=== PATIENT | female | born 2000 | race African-American/Black ===

== ENCOUNTER 2020-12-15 10:10 | Inpatient (IN) ==
[2020-12-15] MEDS ORDERED: ONDANSETRON 4 MG/2 ML VIAL IV PRN ×2 (11:10→15:26)
[2020-12-15] MEDS ORDERED: OXYTOCIN/LR 20 UNIT/1,000 ML BAG IV ONE ×3 (11:13→15:26)
[2020-12-15] MEDS ORDERED: AMPICILLIN INJ 2,000 MG in SODIUM CHLORIDE 0.9% 100 ML IV ONE (11:13)
[2020-12-15] MEDS: LACTATED RINGERS 1,000 ML IV PRN ×2 (11:25→14:28)
[2020-12-15] MEDS ORDERED: ePHEDrine 50 MG/ML VIAL IV PRN (11:31)
[2020-12-15] MEDS ORDERED: CITRIC ACID/SODIUM CITRATE 30 ML UDCUP PO ONE (11:34)
[2020-12-15] MEDS ORDERED: FAMOTIDINE 20 MG/2 ML VIAL IV ONE (11:34)
[2020-12-15] MEDS ORDERED: TRANEXAMIC ACID 1,000 MG/10 ML VIAL ONE (11:37)
[2020-12-15] MEDS ORDERED: OXYTOCIN 10 UNIT/ML VIAL ONE (11:37)
[2020-12-15] MEDS ORDERED: miSOPROStoL 200 MCG TABLET ONE (11:37)
[2020-12-15] MEDS ORDERED: CARBOPROST TROMETHAMINE 250 MCG/ML AMP IM ONE (11:38)
[2020-12-15] MEDS ORDERED: METHYLERGONOVINE 0.2 MG/1 ML AMP ONE (11:38)
[2020-12-15] MEDS ORDERED: BUTORPHANOL 1 MG/ML VIAL IV ONE (11:50)
[2020-12-15] MEDS ORDERED: BUTORPHANOL 1 MG/ML VIAL ONE (11:51)
[2020-12-15 11:53] LABS: Blood, Urine Large mg/dL (Negative); Glucose,Urine (UA) Negative (Negative); Ketones,Urine 80 mg/dL (Negative); Mucus,Urine Many /LPF (Occasional); Nitrite,Urine Negative (Negative); Protein,Urine 100 MG/DL; RBC,Urine 3 /HPF (0-4); Squamous Epithelial Cell,Urine Many /HPF (0-10); Urine Appearance CLOUDY (Clear); Urine Color Amber (Yellow); Urine Specific Gravity 1.023 (1.001-1.035)
[2020-12-15 11:54] LABS: Bilirubin,Urine Small mg/dL (Negative)
[2020-12-15 12:00] LABS: Basophils % 0.3 % (0.0-0.8); Eosinophils % 0.1 % (0.00-10.9); Hematocrit 26.4 VOL% (35.7-47.0); Hemoglobin 7.5 GM/DL (12.0-16.0); Immature Granulocytes % 1.1 %; Immature Granulocytes Absolute 0.13 #; Lymphocytes # 1.4 10*3/uL (1.4-4.0); Lymphocytes % 12.1 % (21.3-54.2); Mean Corpuscular HGB Conc 28.4 GM/DL (32-36); Mean Corpuscular Volume 69.8 FL (87-102); Mean Platelet Volume 8.8 FL (9.6-12.0); Monocytes % 4.9 % (1.7-12.7); NRBC # 0.02 10*3/uL; Neutrophils % 81.5 % (38.7-73.9); Platelet Count 202 T/CUMM (130-400); Red Blood Count 3.78 MC/CUMM (3.8-5.5); White Blood Count 11.5 T/CUMM (4-12)
[2020-12-15] MEDS ORDERED: fentaNYL 2 MCG/ROPIV 0.2% EPID 100 ML EPIDURAL SCH (12:00)
[2020-12-15] MEDS ORDERED: miSOPROStoL 200 MCG TABLET RECTAL ONE (15:10)
[2020-12-15 15:23] LABS: Cord Arterial Blood HCO3 22.2 MMOL/L
[2020-12-15 15:24] LABS: Cord Venous Blood HCO3 23.3 MMOL/L; Cord Venous Blood PCO2 39.4 MMHG
[2020-12-15] MEDS ORDERED: MEASLES/MUMPS/RUBELLA VACCINE 0.5 ML VIAL SUBCUT ONE (15:26)
[2020-12-15] MEDS ORDERED: IBUPROFEN 800 MG TABLET PO PRN (15:26)
[2020-12-15] MEDS ORDERED: oxyCODONE/ACETAMINOPHEN 5-325 MG TABLET PO PRN ×2 (15:26)
[2020-12-15] MEDS ORDERED: RHO(D) IMMUNE GLOBULIN 300 MCG SYRINGE IM ONE (15:26)
[2020-12-15] MEDS ORDERED: DIPH/TET/ACEL PERT BOOSTER VACCINE 0.5 ML VIAL IM ONE (15:26)
[2020-12-15] MEDS ORDERED: HYDROCORTISONE 2.5% RECTAL CREAM 30 GM TUBE TOP PRN (15:26)
[2020-12-15] MEDS ORDERED: LANOLIN 50% CREAM 0.3 OZ TUBE TOP PRN (15:26)
[2020-12-15] MEDS ORDERED: ACETAMINOPHEN 325 MG TABLET PO PRN (15:26)
[2020-12-15] MEDS ORDERED: BISACODYL 10 MG SUPP RECTAL PRN (15:26)
[2020-12-15] MEDS ORDERED: BENZOCAINE 20%/MENTHOL 0.5% SPRAY 56 GM CAN TOP PRN (15:26)
[2020-12-15] MEDS ORDERED: WITCH HAZEL PADS 100/JAR TOP PRN (15:26)
[2020-12-15] MEDS ORDERED: LACTATED RINGERS 1,000 ML IV PRN (16:07)
[2020-12-15 19:35] LABS: Basophils % 0.1 % (0.0-0.8); Hematocrit 22.6 VOL% (35.7-47.0); Hemoglobin 6.6 GM/DL (12.0-16.0); Immature Granulocytes % 0.9 %; Immature Granulocytes Absolute 0.16 #; Lymphocytes # 1.2 10*3/uL (1.4-4.0); Lymphocytes % 6.8 % (21.3-54.2); Mean Corpuscular HGB Conc 29.2 GM/DL (32-36); Mean Corpuscular Volume 69.3 FL (87-102); Monocytes % 6.1 % (1.7-12.7); NRBC # 0.03 10*3/uL; Neutrophils % 86.1 % (38.7-73.9); Platelet Count 179 T/CUMM (130-400); Red Blood Count 3.26 MC/CUMM (3.8-5.5); Red Cell Distribution Width 16.7 % (9.3-17.3); White Blood Count 17.5 T/CUMM (4-12)
[2020-12-15] MEDS ORDERED: SODIUM CHLORIDE 0.9% 1,000 ML IV PRN ×2 (20:06→20:11)
[2020-12-15] MEDS ORDERED: FERROUS SULFATE 325 MG TABLET PO SCH (21:00)
[2020-12-15] MEDS ORDERED: DOCUSATE SODIUM 100 MG CAPSULE PO SCH (21:00)
[2020-12-16 04:58] LABS: Basophils % 0.2 % (0.0-0.8); Eosinophils % 0.2 % (0.00-10.9); Hematocrit 24.4 VOL% (35.7-47.0); Hemoglobin 7.3 GM/DL (12.0-16.0); Immature Granulocytes Absolute 0.17 #; Lymphocytes # 2.3 10*3/uL (1.4-4.0); Lymphocytes % 12.9 % (21.3-54.2); Mean Corpuscular HGB Conc 29.9 GM/DL (32-36); Mean Corpuscular Volume 70.9 FL (87-102); Mean Platelet Volume 8.9 FL (9.6-12.0); Monocytes % 7.5 % (1.7-12.7); NRBC # 0.02 10*3/uL; Neutrophils % 78.2 % (38.7-73.9); Platelet Count 167 T/CUMM (130-400); Red Blood Count 3.44 MC/CUMM (3.8-5.5); Red Cell Distribution Width 17.5 % (9.3-17.3); White Blood Count 17.8 T/CUMM (4-12)
[2020-12-16] MEDS: DOCUSATE SODIUM 100 MG/10 ML UDCUP PO SCH ×2 (08:25→20:37)
[2020-12-16] MEDS: FERROUS SULFATE 300 MG/5 ML UDCUP PO SCH ×2 (08:25→20:38)
[2020-12-16] MEDS: IBUPROFEN 100 MG/5 ML UDCUP PO PRN (14:09)
[2020-12-17] MEDS: IBUPROFEN 100 MG/5 ML UDCUP PO PRN (01:42)
[2020-12-17 08:32] VITALS: BP 99/45
[2020-12-17] MEDS: FERROUS SULFATE 300 MG/5 ML UDCUP PO SCH (09:12)
[2020-12-17] MEDS: DOCUSATE SODIUM 100 MG/10 ML UDCUP PO SCH (09:12)
[2020-12-17] MEDS ORDERED: INFLUENZA VIRUS VACCINE 0.5 ML SYRINGE IM ONE (09:20)
== END 2020-12-17 12:25 | disposition home or self-care (01) | DRG 560 ==
LOC: N.LDOUT 10:10 → N.LD 10:11 → N.OB 17:12
PROVIDERS: ADMIT Obstetrics & Gynecology; ATTEND Obstetrics & Gynecology